=== PATIENT | male | born 1940 | race Caucasian/White ===

== ENCOUNTER 2020-10-06 09:08 | Observation (INO) | payer MEDICARE ==
[~2020-10-06] VITALS: Ht 172.7 cm; Wt 88.0 kg
[~2020-10-06 09:08] MED LIST: AZITHROMYCIN250 MG PO; ZESTRIL10 M1 PO; ZITHROMAX500 MG PO
--- NOTE | 2020-10-06 09:10 | NUR ---
PT WALKED BACK TO ROOM. PT INSTRUCTED IN PLAN OF CARE.
[2020-10-06 09:43] LABS: HEMATOCRIT 44.9 % (39.0-50.0); HEMOGLOBIN 14.6 g/dl (14.0-18.0); IMMATURE GRANULOCYTES 0.2 % (0.0-5.0); MEAN CELL VOLUME 97.4 fL CALC (80.0-100.0); MEAN CORPUSCULAR HGB 31.7 pG CALC (26.0-32.0); MEAN CORPUSCULAR HGB CONC 32.5 g/dL CAL (32.0-36.0); NEUT# 3.21 thou/uL (1.82-7.42); RED BLOOD COUNT 4.61 mill/uL (4.70-6.10)
[2020-10-06 10:06] LABS: ALBUMIN 4.4 g/dL (3.2-5.0); ALKALINE PHOSPHATASE 34 u/l (38-126); ANION GAP 10 (6-22 (CALC)); BILIRUBIN, TOTAL 0.9 mg/dL (0.0-1.4); BUN 21 mg/dL (8-23); BUN/CREATININE RATIO 21 (12-20 (CALC)); CARBON DIOXIDE 27 mmol/l (22-30); CHLORIDE 102 mmol/l (95-108); GFR > 60 ML/MIN (>=60 (CALC)); GFR FOR AFR.AMER. > 60 ML/MIN (>=60 (CALC)); SGOT/AST 27 u/l (19-48); SODIUM 136 mmol/l (137-146); TOTAL PROTEIN 6.9 g/dL (6.3-8.2)
--- NOTE | 2020-10-06 10:21 | NUR ---
Reassessment of patient completed. No distress noted.
[2020-10-06 10:23] LABS: MYOGLOBIN 76 ng/mL (0 - 121)
[2020-10-06] MEDS ORDERED: LIPITOR40 M1 PO (10:34)
[2020-10-06] MEDS ORDERED: ASPIRIN81 MG PO (10:34)
[2020-10-06] MEDS ORDERED: LATANOPROST0.005 % OU (10:48)
[2020-10-06] MEDS ORDERED: VITAMIN B-12500 MCG PO (10:48)
[2020-10-06] MEDS ORDERED: BRILINTA90 MG PO (10:49)
[2020-10-06] MEDS ORDERED: BETIMOL0.5 % OD (10:49)
[2020-10-06] MEDS ORDERED: NITROGLYCERIN0.4 MG SL (10:51)
[2020-10-06] MEDS ORDERED: METOPROL TAR25 MG PO (10:51)
[2020-10-06] MEDS ORDERED: LUMIGAN0.01 % OP (10:52)
[2020-10-06] MEDS ORDERED: VITAMIN D320 MCG (10:52)
[2020-10-06 12:25] VITALS: BP 138/84
--- NOTE | 2020-10-06 12:25 | NUR ---
RECEIVED PATIENT UP FROM ED AT THIS TIME VIA STRETCHER. PATIENT ALERT AND ORIENTED AND WALKED TO BED WITHOUT DIFFICULTY. PATIENT GIVEN ORIENTATION TO ROOM AND SURROUNDING TO INCLUDE CALL LIGHT AND TV REMOTE. PATIENT SIGNED SAFTEY POLICY FORM REGARDING ASKING FOR HELP BEFORE GETTING UP. PET CARE ASSISTANT DONE AT THIS TIME. PATIENT LUNGS SOUNDS ARE CLEAR IN ALL ENCISO. PATIENT HAS AUDIABLE BOWEL SOUNDS IN ALL FOUR [employer]RANTS AND STATED HE HAD A MEDIUM SIZE BM THIS AM WHICH WAS BROWN IN COLOR. PATIENT ALSO PRESENTS WITH OLD BRUISE TO LEFT ELBOW AND DEBRA FALLING AT ANY TIME BUT DOES REPORT THAT HE CURRENTLY TAKES BERLENTA (BLOOD THINNING MEDICATION) FOR STENTS THAT WERE PLACE IN HIS HEART A FEW YEARS AGO. PATIENT HAS ON TELE MONITOR AND IS BEING MONITORED BY ED. SIDERAILS ARE UP CALL LIGHT WITHIN REACH.
[2020-10-06 14:35] VITALS: BP 117/71
--- NOTE | 2020-10-06 15:44 | NUR ---
PATIENT LAYING IN BED AT THIS TIME. PATIENT DENIES ANY PAIN. SIDERAILS ARE UP X 2 CALL WITHIN REACH. TELE MONITOR IN PLACE AND CONTINUES TO BE MONITORED BY ED.
[2020-10-06 16:35] LABS: URINE BILIRUBIN - DIPSTICK NEGATIVE (NEGATIVE); URINE BLOOD DIPSTICK NEGATIVE (NEGATIVE); URINE COLOR YELLOW; URINE GLUCOSE - DIPSTICK NEGATIVE (NEGATIVE); URINE KETONE NEGATIVE (NEGATIVE); URINE LEUK ESTERASE NEGATIVE (NEGATIVE); URINE PROTEIN - DIPSTICK NEGATIVE (NEG-TRACE); URINE UROBILINOGEN - DIPSTICK 0.2 E.U./dL (0.2)
[2020-10-06 16:52] LABS: URINE NITRITE - DIPSTICK NEGATIVE (Negative)
[2020-10-06 19:00] VITALS: BP 118/72
--- NOTE | 2020-10-06 20:55 | NUR ---
PT RESTING IN BED AT TIME OF ASSESSMENT. C/O SUSHANT AT TOP OF SHIFT IN LEFT SHOULDER. ADMINSTERED IV TORADOL PER ORDER. BREATHING EVEN AND UNLABORED, LUNGS CTA. SKIN INTACT. NO S/S OF DISTRESS NOTED. SAFETY PRECAUTIONS IN PLACE, BED IN LOWEST POSITION, CALL LIGHT WITHIN REACH. WILL MONITOR
[2020-10-07] VITALS: BP 134/72
--- NOTE | 2020-10-07 00:20 | NUR ---
PT RESTING IN BED WITH BIPAP ON. NO COMPLAINTS VOICED AT THIS TIME. DENIES PAIN. LAB IN WITH PT AT THIS TIME. SAFETY PRECAUTIONS IN PLACE, BED IN LOWEST POSITION, CALL LIGHT WITHIN REACH.
[2020-10-07 04:00] VITALS: BP 130/75
--- NOTE | 2020-10-07 04:20 | NUR ---
PT RESTING IN BED WITH BIPAP ON, NO COMPLAINTS VOICED AT THIS TIME. DENIES PAIN. IV REMAINS SALINE LOCKED. PT REMAINS ON TELE READING SR IN THE 60'S. SAFETY PRECAUTIONS IN PLACE, BED I LOWEST POSITION, CALL LIGHT WITHIN REACH.
[2020-10-07 05:41] LABS: HEMATOCRIT 43.8 % (39.0-50.0); HEMOGLOBIN 14.3 g/dl (14.0-18.0); IMMATURE GRANULOCYTES 0.3 % (0.0-5.0); MEAN CELL VOLUME 97.3 fL CALC (80.0-100.0); MEAN CORPUSCULAR HGB 31.8 pG CALC (26.0-32.0); MEAN CORPUSCULAR HGB CONC 32.6 g/dL CAL (32.0-36.0); NEUT# 3.38 thou/uL (1.82-7.42); RED BLOOD COUNT 4.5 mill/uL (4.70-6.10); RED CELL DISTRI WIDTH 12.9 % (11.5-15.5)
[2020-10-07 06:07] LABS: CHOLESTEROL HDL RATIO 2.1 (<4.4 (CALC)); MAGNESIUM 2.1 mg/dL (1.6-2.3)
--- NOTE | 2020-10-07 07:05 | NUR ---
PATIENT RESTING IN BED AT THIS TIME. EDUCATION OFFICER DONE. LUNG ENCISO REMAIN CLEAR. PATIENT STATED HE WAS HAVING PAIN IN L SHOULDER AND IT WAS A 4 ON THE PAIN SCALE OF 0-10. PATIENT MEDICATED AT THIS TIME WITH 650MG OF TYLENOL FOR PAIN. SIDERAILS ARE UP X 2 CALL LIGHT AND PERSONAL BELONGINGS WITHIN REACH.
[2020-10-07 07:45] VITALS: BP 128/81
--- NOTE | 2020-10-07 08:04 | NUR ---
PAIN REASSESSED AT THIS TIME. PATIENT STATED TYLENOL HELP AND HIS PAIN LEVEL IS NOW A "2" OUT OF THE PAIN SCALE OF 0-10.
--- NOTE | 2020-10-07 09:00 | NUR ---
DR. AMES IN TO SEE PATIENT AT THIS TIME.
[2020-10-07 10:54] VITALS: BP 122/76
--- NOTE | 2020-10-07 11:29 | NUR ---
PATIENT D/C AT THIS TIME. PATIENT TELE MONITOR REMOVED AND ED NOTITIED OF REMOVAL. IV REMOVED AT THIS TIME AND IV SITE HAS NO SIGNS OF IV SITE INFECTION AT THIS TIME. CALL LIGHT IS WITHIN REACH PATIENT SITTING UP IN CHAIR.
[2020-10-07] MEDS ORDERED: METHOCARBAMOL500 MG PO (11:48)
--- NOTE | 2020-10-07 12:42 | NUR ---
Discharge instructions given. Patient verbalizes understanding of same. Discharged in stable condition via Wheelchair to Home with family. All belongings sent with pt.
== END 2020-10-07 12:42 | disposition home or self-care (01) ==
LOC: ED 09:08 → ED-I 10:30 → MS2 10:40 → ED 10:40 → MS2 10-07 12:42
PROVIDERS: Emergency Medicine; Nurse Practitioner; ADMIT Internal Medicine; ATTEND Internal Medicine
DX: R07.9 Chest pain, unspecified (principal); M25.512 Pain in left shoulder; I25.10 Atherosclerotic heart disease of native coronary artery without angina pectoris; I10 Essential (primary) hypertension; E78.5 Hyperlipidemia, unspecified; I25.2 Old myocardial infarction; Z95.5 Presence of coronary angioplasty implant and graft; Z20.822 Contact with and (suspected) exposure to COVID-19
CPT/HCPCS: G0378; J1650